=== PATIENT | male | born 1960 | race Caucasian/White ===

== ENCOUNTER 2021-09-11 10:18 | Inpatient (IN) | payer OTHER ==
[~2021-09-11] VITALS: Ht 175.3 cm; Wt 66.6 kg
[~2021-09-11 10:18] MED LIST: ALBU8.5H INH; B-1100TA2 PO; ERGO500029 PO; FOLI1TAB11 PO; LIDOCAINE 2% 100MG/5ML SDV (FOR ANES.) As Ordered ONE; LR 1,000 ML IV ONE; MIDAZOLAM INJ 2MG/2ML VIAL (J2250 PER 1MG) As Ordered ONE; ONDANSETRON 4MG/2ML VIAL As Ordered ONE; PHENYLephrine 500MCG 5ML (100MCG/ML) SYRINGE As Ordered ONE; ROCURONIUM BROMIDE 50 MG/5 ML VIAL As Ordered ONE; SUGAMMADEX SODIUM 500 MG/5 ML VIAL (BRIDION) As Ordered ONE; VITA500C24 PO; ceFAZolin SOD 2 GM in IV 1 EA IV ONE; dexameTHASONE 4 MG/ML 1ML VIAL (J1100 PER 1MG) As Ordered ONE; ePHEDrine SULFATE 25 MG/5 ML(5MG/ML) SYRINGE As Ordered ONE; fentaNYL 250 MCG/5 ML INJECTION (J3010) As Ordered ONE; propofoL 200 MG/20 ML VIAL As Ordered ONE
[2021-09-11] MEDS ORDERED: BUPIVACAINE HCL 0.25% 30ML VIAL As Ordered ONE (11:31)
[2021-09-11] MEDS ORDERED: LIDOCAINE 1% SDV 30ML VIAL As Ordered ONE (11:31)
[2021-09-11] MEDS ORDERED: HEPARIN SOD (PORCINE) 5000UNITS/ML 1ML VIAL/SYRINGE SQ ONE (11:45)
[2021-09-11] MEDS ORDERED: ACETAMINOPHEN 1000MG 100ML IV BTL (OFIRMEV) (J0131 PER 10MG) As Ordered ONE (12:05)
[2021-09-11] MEDS ORDERED: NS 1,000 ML IV SCH (12:20)
[2021-09-11] MEDS: HEPARIN SOD (PORCINE) 5000UNITS/ML 1ML VIAL/SYRINGE SC SCH ×2 (12:20→20:47)
[2021-09-11] MEDS ORDERED: PERCOCET 5MG/325MG TAB PO PRN (12:20)
[2021-09-11] MEDS ORDERED: ACETAMINOPHEN TAB 650MG DOSE (2X325MG) PO PRN (12:20)
[2021-09-11] MEDS ORDERED: ONDANSETRON 4MG/2ML VIAL IV PRN ×2 (12:20→18:15)
[2021-09-11] MEDS ORDERED: ALBUTEROL 90 MCG/ACT 8GM HFA INHALER INH PRN (12:20)
[2021-09-11] MEDS ORDERED: ROCURONIUM BROMIDE 50 MG/5 ML VIAL As Ordered ONE ×3 (12:26→16:48)
[2021-09-11] MEDS ORDERED: HYDROmorphone HCL 2MG/ML 1ML VIAL As Ordered ONE (12:52)
[2021-09-11] MEDS ORDERED: ESMOLOL INJ 100MG/10ML VIAL As Ordered ONE (13:06)
[2021-09-11] MEDS ORDERED: fentaNYL 100 MCG/2 ML INJECTION (J3010) IV PRN (18:15)
[2021-09-11] MEDS ORDERED: LR 1,000 ML IV SCH (18:15)
[2021-09-11] MEDS ORDERED: oxyCODONE 5MG TAB PO PRN (18:15)
[2021-09-11 18:23] LABS: HEMATOCRIT 38.3 % (42.0-52.0); HEMOGLOBIN 12.5 g/dl (13.5-17.5); MEAN CORPUSCULAR HEMOGLOBIN 34.2 pg (27.0-33.0); MEAN CORPUSCULAR HGB CONC 32.6 g/dl (32.0-36.5); MEAN CORPUSCULAR VOLUME 104.9 fl (80.0-96.0); PLATELET COUNT, AUTOMATED 276 10^3/uL (150-450); RED BLOOD COUNT 3.65 10^6/uL (4.30-6.10); WHITE BLOOD COUNT 13.4 10^3/uL (4.0-10.0)
[2021-09-11 18:44] LABS: BLOOD UREA NITROGEN 7 MG/DL (7-18); CALCIUM LEVEL 8.4 MG/DL (8.5-10.1); CARBON DIOXIDE LEVEL 24 MEQ/L (21-32); CHLORIDE LEVEL 114 MEQ/L (98-107); GLOMERULAR FILTRATION RATE > 60.0 (>56); GLUCOSE, FASTING 152 MG/DL (70-100); POTASSIUM SERUM 4.8 MEQ/L (3.5-5.1); SODIUM LEVEL 143 MEQ/L (136-145)
[2021-09-11 20:30] VITALS: BP 141/96
[2021-09-11] MEDS: ceFAZolin SOD 1 GM in D5W MINI-BAG PLUS 50 ML IV SCH (20:47)
[2021-09-11] MEDS: DOCUSATE SODIUM 100MG CAPSULE PO SCH (20:47)
[2021-09-11 21:00] VITALS: BP 126/80
[2021-09-11 21:30] VITALS: BP 126/81
[2021-09-11 22:30] VITALS: BP 122/78
[2021-09-11 23:30] VITALS: BP 122/78
[2021-09-12 00:30] VITALS: BP 131/81
[2021-09-12 01:30] VITALS: BP 111/69
[2021-09-12] MEDS: HEPARIN SOD (PORCINE) 5000UNITS/ML 1ML VIAL/SYRINGE SC SCH ×2 (04:19→12:28)
[2021-09-12] MEDS: ceFAZolin SOD 1 GM in D5W MINI-BAG PLUS 50 ML IV SCH (04:20)
[2021-09-12 05:30] VITALS: BP 152/75
[2021-09-12 05:59] LABS: HEMATOCRIT 32.6 % (42.0-52.0); HEMOGLOBIN 10.7 g/dl (13.5-17.5); MEAN CORPUSCULAR HEMOGLOBIN 34.4 pg (27.0-33.0); MEAN CORPUSCULAR HGB CONC 32.8 g/dl (32.0-36.5); MEAN CORPUSCULAR VOLUME 104.8 fl (80.0-96.0); PLATELET COUNT, AUTOMATED 232 10^3/uL (150-450); RED BLOOD COUNT 3.11 10^6/uL (4.30-6.10); WHITE BLOOD COUNT 9.7 10^3/uL (4.0-10.0)
[2021-09-12 06:23] LABS: BLOOD UREA NITROGEN 5 MG/DL (7-18); CALCIUM LEVEL 7.5 MG/DL (8.5-10.1); CARBON DIOXIDE LEVEL 27 MEQ/L (21-32); CHLORIDE LEVEL 111 MEQ/L (98-107); CREATININE FOR GFR 0.55 MG/DL (0.70-1.30); GLOMERULAR FILTRATION RATE > 60.0 (>56); GLUCOSE, FASTING 116 MG/DL (70-100); POTASSIUM SERUM 3.6 MEQ/L (3.5-5.1); SODIUM LEVEL 141 MEQ/L (136-145)
[2021-09-12] MEDS ORDERED: oxyBUTYnin 5 MG TAB PO PRN (08:35)
[2021-09-12] MEDS: DOCUSATE SODIUM 100MG CAPSULE PO SCH (08:55)
[2021-09-12] MEDS ORDERED: BACTRIM 160MG/800MG DS TAB PO SCH (09:00)
[2021-09-12] MEDS: PERCOCET 5MG/325MG TAB PO PRN ×2 (09:01→15:40)
[2021-09-12 10:00] VITALS: BP 115/73
[2021-09-12] MEDS ORDERED: COLA100C5 PO (12:51)
[2021-09-12] MEDS ORDERED: BACTDSTA PO (12:51)
[2021-09-12] MEDS ORDERED: PERCOCET PO (12:51)
[2021-09-12 14:00] VITALS: BP 113/72
== END 2021-09-12 16:15 | disposition home or self-care (01) | DRG 484 ==
LOC: M OR 10:18 → M MSPAV 20:24
PROVIDERS: ADMIT Urology; ATTEND Urology
PROC: 07BC4ZZ Excision of Pelvis Lymphatic, Percutaneous Endoscopic Approach (ICD-10-PCS; 2021-09-11)
PROC: 0VT04ZZ Resection of Prostate, Percutaneous Endoscopic Approach (ICD-10-PCS; principal; 2021-09-11 12:15)
DX: C61 Malignant neoplasm of prostate (principal); E78.5 Hyperlipidemia, unspecified; E55.9 Vitamin D deficiency, unspecified; D63.8 Anemia in other chronic diseases classified elsewhere